=== PATIENT | male | born 1975 | race Caucasian/White ===

== ENCOUNTER 2020-08-05 12:50 | Outpatient (CLI) | payer BC, SELFPAY ==
--- NOTE | 2020-08-05 13:04 | MR_ITS ---
WS: [id number] MRI HEAD WITH CONTRAST TECHNIQUE: Sagittal T1, T2 axial, T2 axial FLAIR, axial susceptibility weighted imaging, axial diffus ion weighted images, and coronal T2 images were obtained. Pre and post-T1 axial and post T1 coronal i mages. ADC and FSPGR images. CLINICAL INFORMATION: MUSCLE WEAKNESS/HEADACHES COMPARISON: None. FINDINGS: No evidence of restricted diffusion to suggest acute ischemia. Ventricular system and basal cisterns are patent. No suspicious intracranial signal abnormalities. Mild parenchymal volume loss. Normal pos terior fossa. Normal vascular flow voids at the skull base. No extra-axial fluid collections. No evidence of mass or mass effect. Paranasal sinuses and mastoid a ir cells are well aerated. No hemosiderin on the susceptibility weighted images. Mild mucosal thicken ing in the right greater than left mastoid air cells. Paranasal sinuses are well aerated. Normal optic chiasm and pituitary infundibulum. No abnormal gadolinium enhancement. Normal dural veno us sinuses. MR/MR head wo/w con [id number] IMPRESSION: 1. No evidence of restricted diffusion to suggest acute ischemia. 2. No suspicious intracranial signal abnormalities. Mild parenchymal volume lo ss. 3. No abnormal gadolinium enhancement. 4. Mild mucosal thickening in the mastoid air cells. Paranasal sinuses are wel l aerated. 5. No hemosiderin on the susceptibility weighted images. 6. Normal optic chiasm and pituitary infundibulum. 7. No other significant findings.
== END 2020-08-05 12:51 | disposition home or self-care (01) ==
LOC: RADSHAW 12:58
PROVIDERS: PCP Electrodiagnostic Medicine; Visit Provider Electrodiagnostic Medicine
DX: M62.81 Muscle weakness (generalized) (principal); R51.9 Headache, unspecified
CPT/HCPCS: 70553; A9579

== ENCOUNTER 2021-11-10 16:33 | Outpatient (CLI) | payer BC, SELFPAY ==
--- NOTE | 2021-11-10 16:48 | XR_ITS ---
WS: [id number] Chest 2 views, 11/10/2021 Clinical Data: CHEST PAIN Comparison: Portable chest, 06/21/2018. Findings: No nodules, masses or effusions are seen. The heart is normal. The pulmonary vascularity is not increased. No pneumonia or pneumothorax is seen. XR/XR chest 2V* [id number] Impression: Negative chest.
== END 2021-11-10 16:34 | disposition home or self-care (01) ==
LOC: RAD 16:35
PROVIDERS: PCP Electrodiagnostic Medicine; Visit Provider Electrodiagnostic Medicine
DX: R07.9 Chest pain, unspecified (principal)
CPT/HCPCS: 71046